=== PATIENT | female | born 1970 | race Caucasian/White ===

== ENCOUNTER 2020-10-21 08:23 | Observation (INO) ==
[2020-10-21 08:54] LABS: Basophils # 0.1 K/mcL (0.0-0.2); Basophils % 0.9 %; Eosinophils # 0.2 K/mcL (0.0-0.6); Eosinophils % 1.7 %; Hematocrit 34.9 % (35.3-44.9); Hemoglobin 10.9 g/dL (11.5-15.4); Immature Granulocytes % 0.2 % (0-4); Lymphocytes # 2.5 K/mcL (0.6-4.6); Lymphocytes % 28.2 %; Mean Corpuscular HGB Conc 31.2 g/dL (31.6-35.5); Mean Corpuscular Hemoglobin 26.3 pg (28.0-33.3); Mean Corpuscular Volume 84.1 fL (83.0-100.0); Mean Platelet Volume 9.4 fL (9.4-12.4); Monocytes # 0.6 K/mcL (0.0-1.3); Monocytes % 6.6 %; Neutrophils # 5.6 K/mcL (1.6-8.9); Platelet Count 372 K/mcL (140-400); Red Blood Count 4.15 M/mcL (3.82-4.97); Red Cell Distribution Width 16.3 % (11.5-14.5); Segmented Neutrophils % 62.4 %; White Blood Count 8.9 K/mcL (4.3-11.1)
[2020-10-21 09:00] LABS: Prothrombin Time 11.7 Seconds (9.4-12.1)
[2020-10-21 09:10] LABS: BUN/Creatinine Ratio 11 (6-26); Blood Urea Nitrogen 8 mg/dL (6-20); Calcium 9.3 mg/dL (8.6-10.3); Carbon Dioxide 20 mEq/L (23-29); Chloride 103 mEq/L (98-107); Glucose 104 mg/dL (70-105); Osmolality,Calculated 273 (280-300); Potassium 3.7 mEq/L (3.5-5.1); Sodium 132 mEq/L (136-145); eGFR For African Americans > 60 (> 60); eGFR For Non-African Americans > 60 (> 60)
[2020-10-21 09:12] LABS: Troponin I < 0.03 ng/mL (< 0.04)
[2020-10-21] MEDS ORDERED: Morphine Sulfate 2 MG/ML SYRINGE IVP ONE (09:35)
[2020-10-21] MEDS ORDERED: Aspirin 81 MG TAB.CHEW PO STA (09:35)
[2020-10-21] MEDS ORDERED: Ondansetron 4 MG/2 ML VIAL IVP ONE (09:35)
[2020-10-21] MEDS ORDERED: Nitroglycerin 1 INCH/GM PACKET TP ONE (09:35)
[2020-10-21] MEDS ORDERED: (Eletriptan Hbr [Relpax] 40 MG) PO SCH (11:45)
[2020-10-21] MEDS ORDERED: tiZANidine 4 MG TABLET PO PRN (15:53)
[2020-10-21] MEDS: *HR* Metformin 500 MG TABLET PO SCH (17:21)
[2020-10-21] MEDS: Gabapentin 300 MG CAPSULE PO SCH ×2 (17:21→21:49)
[2020-10-21] MEDS: Budesonide/Formoterol 160/4.5 1 PUFF INH IH SCH (20:19)
[2020-10-21] MEDS ORDERED: Fluticasone Propionate Nasal 50 MCG/SPRAY BOTTLE NS SCH (21:00)
[2020-10-21] MEDS: Magnesium Oxide 400 MG TABLET PO SCH (21:48)
[2020-10-22 06:35] VITALS: BP 130/84
[2020-10-22] MEDS: *HR* Metformin 500 MG TABLET PO SCH (08:30)
[2020-10-22] MEDS: Gabapentin 300 MG CAPSULE PO SCH (08:31)
[2020-10-22] MEDS: Magnesium Oxide 400 MG TABLET PO SCH (08:31)
[2020-10-22] MEDS ORDERED: NON-FORMULARY MEDICATION 1 EACH EACH (Mometasone/Formoterol [Dulera 200 Mcg-5 Mcg Inhaler] IH SCH (09:00)
[2020-10-22] MEDS ORDERED: Vitamin B Complex/Vit C/Vit E 1 EACH TABLET PO SCH (09:00)
[2020-10-22] MEDS ORDERED: Aspirin Enteric Coated 81 MG Tablet PO SCH (09:00)
[2020-10-22] MEDS ORDERED: Cyanocobalamin (B-12) 1,000 MCG TABLET PO SCH (09:00)
[2020-10-22] MEDS ORDERED: FLUoxetine 20 MG CAPSULE PO SCH (09:00)
[2020-10-22] MEDS ORDERED: Loratadine 10 MG TABLET PO SCH (09:00)
[2020-10-22] MEDS: Budesonide/Formoterol 160/4.5 1 PUFF INH IH SCH (10:45)
== END 2020-10-22 11:07 | disposition home or self-care (01) ==
LOC: EMEROOGRE 08:23 → INPGRE 08:23
PROVIDERS: ADMIT Family Medicine; ATTEND Family Medicine